=== PATIENT | female | born 1955 | race Caucasian/White ===

== ENCOUNTER 2017-01-15 19:57 | Emergency (ER) | payer BC ==
[2017-01-15 20:12] VITALS: BP 137/87; PULSE 91; TEMP 99.3; O2SAT 96
--- NOTE | 2017-01-15 20:42 | C.PDOC ---
History Of Present Illness 61 year old female presents to the ED with complaints of nasal congestion and sinus pressure over the last four days. Patient notes today pain and swelling to nose that radiates to right facial area and right ear. She denies fever, cough, or neck pain. Time Seen by Provider: 01/15/17 20:15 Chief Complaint (Nursing): ENT Problem History Per: Patient History/Exam Limitations: no limitations Onset/Duration Of Symptoms: Days Current Symptoms Are (Timing): Still Present Location Of Pain: Sinus/es Associated Symptoms: Cough. denies: Fever, Vomiting, Diarrhea Past Medical History Reviewed: Historical Data, Nursing Documentation, Vital Signs Vital Signs: Last Vital Signs Temp 99.3 F 01/15/17 20:09 Pulse 91 H 01/15/17 20:09 Resp 20 01/15/17 21:39 BP 137/87 01/15/17 20:09 Pulse Ox 96 01/15/17 21:00 - Medical History PMH: HTN, Hypercholesterolemia Family History: States: Unknown Family Hx - Social History Hx Alcohol Use: No Hx Substance Use: No - Immunization History Hx Tetanus Toxoid Vaccination: No Hx Influenza Vaccination: No Hx Pneumococcal Vaccination: No Review Of Systems Constitutional: Negative for: Fever, Chills ENT: Positive for: Nose Pain, Nose Congestion, Other (sinus pressure ) Gastrointestinal: Negative for: Nausea, Vomiting, Diarrhea Musculoskeletal: Negative for: Neck Pain Physical Exam - Physical Exam Appears: Non-toxic, No Acute Distress Skin: Warm, Dry Head: Normacephalic, No Tenderness, No Swelling Eye(s): bilateral: PERRL, EOMI, Other (watery discharge ) Ear(s): Bilateral: Normal Nose: Tenderness (frontal sinus tenderness), Other (erythema over nasal bridge and nasal tip, yellow exudate present at both nares) Neck: Supple Extremity: Normal ROM, No Tenderness Neurological/Psych: Oriented x3 ED Course And Treatment O2 Sat by Pulse Oximetry: 96 Disposition Counseled Patient/Family Regarding: Diagnosis, Need For Followup, Rx Given - Disposition Referrals: Hao Wetzel MD [Staff Provider] - Disposition: HOME/ ROUTINE Disposition Time: 20:54 Condition: GOOD Additional Instructions: Please follow up with PMD Take meds as directed Return to ER if worse Prescriptions: Sulfamethoxazole/Trimethoprim [Bactrim DS 800 mg-160 mg] 1 tab PO BID #14 tab Ibuprofen [Motrin] 600 mg PO Q6H #30 tab Mometasone Furoate [Nasonex] 2 spray NS DAILY #1 bottle Cetirizine HCl [Zyrtec] 10 mg PO DAILY #20 capsule Instructions: Sinusitis (ED) - Clinical Impression Clinical Impression: Sinusitis - Scribe Statement The provider has reviewed the documentation as recorded by the Estebanibcassie Angeles All medical record entries made by the Ban were at my direction and personally dictated by me. I have reviewed the chart and agree that the record accurately reflects my personal performance of the history, physical exam, medical decision making, and the department course for this patient. I have also personally directed, reviewed, and agree with the discharge instructions and disposition.
[2017-01-15] MEDS ORDERED: Tmp-Smz 800 mg-160 mg DS Tab ONE (21:04)
[2017-01-15] MEDS ORDERED: Tmp-Smz 800 mg-160 mg DS Tab PO STA (21:05)
[2017-01-15 21:40] VITALS: RESP 20
== END 2017-01-15 21:39 | disposition home or self-care (01) ==
LOC: C.ER 19:57
DX: J32.9 Chronic sinusitis, unspecified (principal)

== ENCOUNTER 2017-01-18 06:18 | Emergency (ER) | payer BC ==
[2017-01-18] MEDS ORDERED: Tetracaine 0.5% Ophth (OR ONLY) OD ONE (07:27)
[2017-01-18] MEDS ORDERED: Fluorescein 1 mg Ophthalmic Strip OD ONE (07:27)
[2017-01-18] MEDS ORDERED: Hydrocodone/Acetaminophen 5 mg /300 mg Tab PO STA (07:29)
[2017-01-18] MEDS ORDERED: Hydrocodone/Acetaminophen 5 mg /300 mg Tab PO ONE (07:36)
[2017-01-18] MEDS ORDERED: Fluorescein 1 mg Ophthalmic Strip ONE (07:36)
[2017-01-18] MEDS ORDERED: Tetracaine 0.5% Ophth (OR ONLY) ONE (07:38)
--- NOTE | 2017-01-18 07:38 | C.PDOC ---
History Of Present Illness 61 y/o female presents to the ED complaining of right sided nose and head pain/ pressure x 3 days. Patient reports that she was seen here in the ED 3 days prior and diagnosed with a sinus infection. She states that she is not feeling any better, and currently has painful lesions on her nose. Patient also admits to some right eye discomfort. She denies visual changes, fever, nasal congestion, ear pain, dizziness, headache. Time Seen by Provider: 01/18/17 07:17 Chief Complaint (Nursing): ENT Problem History Per: Patient History/Exam Limitations: no limitations Onset/Duration Of Symptoms: Days (3), Gradual Current Symptoms Are (Timing): Still Present Severity: Mild Reports Recently: Seen In ED Recent travel outside of the [place]: No Past Medical History Reviewed: Historical Data, Nursing Documentation, Vital Signs Vital Signs: Last Vital Signs Temp 97.8 F 01/18/17 08:13 Pulse 76 01/18/17 08:13 Resp 20 01/18/17 08:13 BP 143/89 01/18/17 08:13 Pulse Ox 98 01/18/17 08:29 - Medical History PMH: HTN, Hypercholesterolemia Surgical History: No Surg Hx Family History: States: No Known Family Hx - Social History Hx Alcohol Use: No Hx Substance Use: No - Immunization History Hx Tetanus Toxoid Vaccination: No Hx Influenza Vaccination: Yes Hx Pneumococcal Vaccination: No Review Of Systems Except As Marked, All Systems Reviewed And Found Negative. Constitutional: Negative for: Fever Eyes: Positive for: Pain (right). Negative for: Vision Change ENT: Positive for: Other (right sided nose pain and head pain/pressure). Negative for: Nose Congestion Cardiovascular: Negative for: Chest Pain Respiratory: Negative for: Cough, Shortness of Breath Skin: Positive for: Rash (vesicular painful lesions on nose) Neurological: Negative for: Weakness, Numbness, Headache, Dizziness Physical Exam - Physical Exam Appears: Non-toxic, Other (in mild pain) Skin: Warm, Dry, Rash Head: Normacephalic Eye(s): bilateral: Normal Inspection, PERRL, EOMI, right: Other (eye examined under Wood's lamp with fluorescein stain - no dendritic lesions, no corneal abrasions/ulcers, no discharge) Ear(s): Bilateral: Normal Nose: Other (right side of the nose- multiple crusting vesicular lesions; right nare interior, mild swelling, no discharge) Oral Mucosa: Moist, No Other (intraoral lesions) Tongue: Normal Appearing, No Lesions Lips: Normal Appearing Throat: Normal, No Erythema, No Exudate Neck: Normal, Normal ROM, Supple Chest: Symmetrical, No Other (lesions) Cardiovascular: Rhythm Regular Respiratory: Normal Breath Sounds, No Rales, No Rhonchi, No Wheezing Gastrointestinal/Abdominal: No Other (lesions) Extremity: Normal ROM Neurological/Psych: Oriented x3, Normal Speech, Normal Cognition Gait: Steady ED Course And Treatment O2 Sat by Pulse Oximetry: 98 (ra) Pulse Ox Interpretation: Normal Progress Note: Patient given PO Acyclovir and PO Vicodin. Tetracaine drop instilled into eye and fluorecein stain used to visualize eye under Wood's lamp (by me). Reevaluation Time: 20:00 Reassessment Condition: Improved (Patient reassessed, pain has improved. She was given Rxs for Acyclovir, Vicodin and instructed to follow up with PMD in 1- 2 days. She understands she should return to ED if symptoms worsen.) Disposition Counseled Patient/Family Regarding: Studies Performed, Diagnosis, Need For Followup, Rx Given - Disposition Referrals: Hao Wetzel MD [Primary Care Provider] - Disposition: HOME/ ROUTINE Disposition Time: 20:00 Condition: STABLE Additional Instructions: FOLLOW UP WITH YOUR DOCTOR IN 1-2 DAYS USE MEDICATIONS DIRECTED RETURN TO ER IF SYMPTOMS WORSEN Prescriptions: Hydrocodone/Acetaminophen [Hydrocodon-Acetaminophen 5-325] 1 each PO Q6 PRN #15 tablet PRN Reason: Pain, Moderate (4-7) Acyclovir [Zovirax] 400 mg PO TID #21 tab Instructions: Shingles (ED) Print Language: YORUBA - POA Present On Arrival: None - Clinical Impression Clinical Impression: Herpes zoster - Scribe Statement The provider has reviewed the documentation as recorded by the Scribe (Daniella Amin) Provider Attestation: All medical record entries made by the Estebanibe were at my direction and personally dictated by me. I have reviewed the chart and agree that the record accurately reflects my personal performance of the history, physical exam, medical decision making, and the department course for this patient. I have also personally directed, reviewed, and agree with the discharge instructions and disposition.
[2017-01-18 08:14] VITALS: BP 143/89; PULSE 76; RESP 20; TEMP 97.8
[2017-01-18 08:27] VITALS: O2SAT 98
== END 2017-01-18 08:13 | disposition home or self-care (01) ==
LOC: SUPCPDRO 06:18 → C.ER 06:18
DX: B02.9 Zoster without complications (principal)